=== PATIENT | female | born 1985 | race Caucasian/White ===

== ENCOUNTER 2018-01-29 05:51 | Emergency (ER) | payer SELFPAY ==
[~2018-01-29] VITALS: Ht 170.2 cm; Wt 136.5 kg
[~2018-01-29 05:51] MED LIST: CEPH500C PO; CITA40TA12 PO
[2018-01-29 06:32] VITALS: BP 140/87
[2018-01-29] MEDS ORDERED: PRED-220 PO (06:32)
[2018-01-29] MEDS ORDERED: CLOB15CR TP (06:32)
--- NOTE | 2018-01-29 06:44 | PHYS DOC ---
Past History Past Medical History: Other Past Surgical History: Other Additional Smoking Information: 04/25 PPD Alcohol Use: None Drug Use: None Adult General Chief Complaint Chief Complaint: SKIN PROBLEM HPI HPI 2-year-old female presents with rash. The patient has a history of bullous pemphigoid. She presents today with outbreak of the rash on her upper body. She has erythematous, vesicular patches on her lateral chest wall bilaterally as well as an area on the superior left breast. She states that she has this rash intermittently every so often. It is usually on her lower extremities. She believes that these started showing up about one week ago. They have an intense burning character to them. This feels like her previous outbreaks. The patient does not have insurance at this time and has not been using oral or topical steroids. She usually is just tries to ignore it, but rash beginning on her upper extremities and chest wall is difficult to ignore. She denies fever or chills. She denies any other illness or concerns. Review of Systems Review of Systems Constitutional: Denies fever or chills [] Eyes: Denies change in visual acuity, redness, or eye pain [] HENT: Denies nasal congestion or sore throat [] Respiratory: Denies cough or shortness of breath [] Cardiovascular: No additional information not addressed in HPI [] GI: Denies abdominal pain, nausea, vomiting, bloody stools or diarrhea [] : Denies dysuria or hematuria [] Musculoskeletal: Denies back pain or joint pain [] Integument: Rash[] Neurologic: Denies headache, focal weakness or sensory changes [] Endocrine: Denies polyuria or polydipsia [] All other systems were reviewed and found to be within normal limits, except as documented in this note. Allergies Allergies Allergies Coded Allergies Type Severity Reaction Last Updated Verified No Known Drug Allergies 08/23/14 No Physical Exam Physical Exam Constitutional: Well developed, well nourished, no acute distress, non-toxic appearance. [] HENT: Normocephalic, atraumatic, bilateral external ears normal, oropharynx moist, no oral exudates, nose normal. [] Eyes: PERRLA, EOMI, conjunctiva normal, no discharge. [] Neck: Normal range of motion, no tenderness, supple, no stridor. [] Cardiovascular:Heart rate regular rhythm, no murmur [] Lungs & Thorax: Bilateral breath sounds clear to auscultation [] Abdomen: Bowel sounds normal, soft, no tenderness, no masses, no pulsatile masses. [] Skin: Erythematous, vesicular patches on the lateral anterior chest wall The axilla bilaterally, left superior breast, bilateral flank area.[] Back: No tenderness, no CVA tenderness. [] Extremities: No tenderness, no cyanosis, no clubbing, ROM intact, no edema. [] Neurologic: Alert and oriented X 3, normal motor function, normal sensory function, no focal deficits noted. [] Psychologic: Affect normal, judgement normal, mood normal. [] Current Patient Data Vital Signs Vital Signs Date Time Temp Pulse Resp B/P (MAP) Pulse Ox O2 Delivery O2 Flow Rate FiO2 01/29/18 06:32 85 18 140/87 (104) 95 Room Air 01/29/18 05:59 97.8 EKG EKG [] Radiology/Procedures Radiology/Procedures [] Course & Med Decision Making Course & Med Decision Making Pertinent Labs and Imaging studies reviewed. (See chart for details) I reviewed the literature on bolus pemphigoid. Super high topical steroid such as clobetasol 0.05%, is the first line treatment. I will prescribe this cream to her. Given the patient's financial situation, $65 per tube of clobetasol will be very expensive for her. I am additionally writing a prescription for prednisone 60 mg for 5 days as a pulsed dose. The hope is that the oral therapy will start to rapidly get control of her outbreak followed by topical therapy to maintain and eventually resolve the outbreak. [] Dragon Disclaimer Dragon Disclaimer This electronic medical record was generated, in whole or in part, using a voice recognition dictation system. Departure Departure: Impression: Primary Impression: Bullous pemphigoid Disposition: HOME, SELF-CARE Condition: STABLE Patient Instructions: Bullous Pemphigoid Scripts Prednisone (PREDNISONE) 10 Mg Tablet 60 MG PO DAILY for 5 Days, #30 TAB 1 Refill Prov: WALI GREENE DO 01/29/18 Clobetasol Propionate (CLOBETASOL PROPIONATE) 15 Gm Cream..g. 1 CONY TP BID, #60 GM 2 Refills Prov: WALI GREENE DO 01/29/18 WALI GREENE DO Jan 29, 2018 06:43
== END 2018-01-29 06:40 | disposition home or self-care (01) ==
LOC: ER 05:51
DX: L12.0 Bullous pemphigoid (principal); F17.210 Nicotine dependence, cigarettes, uncomplicated
CPT/HCPCS: 99283